=== PATIENT | male | born 1985 | race Caucasian/White ===

== ENCOUNTER 2020-10-19 10:48 | Emergency (ER) | payer BC ==
[2020-10-19 11:12] VITALS: BP 126/68
--- NOTE | 2020-10-19 12:10 | ED Physician Documentation ---
PD HPI SKIN - Stated complaint Stated Complaint: R ARM/DOG BITE - Chief complaint Chief Complaint: Wound - History obtained from History obtained from: Patient - Additional information Additional information: 35-year-old man, tetanus up-to-date in the past 6 years, presents with dog bite from his on pet who is vaccinated against rabies. Patient has 2 puncture love to the forearm. No other injuries. Review of Systems Skin: reports: Bite / sting PD PAST MEDICAL HISTORY - Present Medications Home Medications: Ambulatory Orders Medication Instructions Recorded Confirmed Amox/Clav 875/125 [Augmentin 1 tablet PO Q12H 14 Days #28 tablet 10/19/20 875/125 Tab] - Allergies Allergies/Adverse Reactions: Allergies Allergy/AdvReac Type Severity Reaction Status Date / Time No Known Drug Allergies Allergy Verified 10/19/20 11:12 PD ED PE NORMAL - Vitals Vital signs reviewed: Yes - General General: Alert and oriented X 3, No acute distress, Well developed/nourished - HEENT HEENT: Atraumatic, PERRL, EOMI - Derm Derm: Normal color, Warm and dry, Other (2 puncture love to right volar and dorsal forearm.) - Extremities Extremities: No deformity, Other (2+ radial pulse. Normal sensation and cap refill. Normal strength. Right upper extremity) Results - Vitals Vitals: Vital Signs - 24 hr 10/19/20 11:09 Temperature 36.1 C L Heart Rate 66 Respiratory 16 Rate Blood Pressure 126/68 O2 Saturation 100 Oxygen O2 Source Room air PD MEDICAL DECISION MAKING - ED course ED course: 35-year-old man presents with bite to the right distal forearm. Cleaned, copious irrigation, tetanus shot up-to-date. Return precautions given.f/u primary doctor. impression 1. animal bite Departure - Departure Disposition: 01 Home, Self Care Condition: Good Instructions: ED Bite Animal General Prescriptions: Amox/Clav 875/125 [Augmentin 875/125 Tab] 1 tablet PO Q12H 14 Days #28 tablet Comments: You are seen in the emergency department for dog bite. Please return to the emergency department if you experience any new or worsening symptoms or other concerns. Monitor for any signs of infection. Follow-up with your primary doctor.
== END 2020-10-19 12:26 | disposition home or self-care (01) ==
LOC: ED 10:48
DX: S51.831A Puncture wound without foreign body of right forearm, initial encounter (principal); W54.0XXA Bitten by dog, initial encounter
CPT/HCPCS: 99281; 99282